=== PATIENT | male | born 1950 | race Hispanic/Latino ===

== ENCOUNTER 2017-03-08 06:18 | Day surgery (SDC) | payer MEDICARE ==
[2016-08-15 23:53] VITALS: BMI 41.9
[2017-03-08] MEDS ORDERED: Lidocaine 2% Inj (20ml) ONE ×2 (06:55→07:54)
[2017-03-08] MEDS ORDERED: Iohexol 350 MG/100 ML VIAL ONE (06:56)
[2017-03-08] MEDS ORDERED: Iohexol 350mgl/ml 50 ML ONE (06:56)
[2017-03-08] MEDS ORDERED: Phenylephrine 10 mg/ml Inj ONE (06:56)
[2017-03-08 07:17] VITALS: TEMP 98.3
[2017-03-08] MEDS ORDERED: Midazolam 2 MG/2 ML VIAL ONE (07:34)
[2017-03-08] MEDS ORDERED: Sodium Chloride 0.45% 1,000 ML IV SCH (08:30)
--- NOTE | 2017-03-08 08:37 | CARD ---
APPROVED REPORT HISTORY 71%. (EF Method: RADIONUCLIDE), peripheral vascular disease, chronic lung disease, hypertension , dyslipidemia . INDICATION The indication(s) include : dyspnea, valvular heart disease. CASE TECHNIQUE The patient was brought electively to the Cardiac Catheterization Laboratory in a fasting state and was prepped and draped in a sterile manner. The right femoral groin was infiltrated with 2% Lidocaine subcutaneous anesthesia. A 6F sheath was inserted into the right femoral artery without difficulty. Coronary angiography was performed using coronary diagnostic catheters. The left coronary system was accessed and visualized with a JL 4.5 catheter. The right coronary system was accessed and visualized with a JR 4 catheter. The left ventricle was accessed and visualized with a JR 4 catheter. Left ventriculogram was performed in DUNCAN projection. A Right Heart Catheterization was performed with a 7 Fr. [place]-Emy catheter and pressure were recorded. Cardiac outputs were obtained by the Thermodilution method. Pre-demployment femoral angiogram was performed revealing no evidence of significant disease and the access site appears to be in the profunda branch. Closure device was deployed with a Fr Mynx without any complications. Hemostasis was obtained with manual pressure following sheath removal without any complications. The patient tolerated the procedure well and there were no complications associated with the procedure. Vessel Analysis The patient's coronary anatomy is right dominant. The left main coronary artery is a large size vessel free of disease. The left main bifurcates to the left anterior descending and circumflex. The left anterior descending artery is a medium size vessel with midl irregularities. There is a 30% stenosis in the proximal segment. The first diagonal branch is a medium size vessel with intimal irregularities. The second diagonal branch is a medium size vessel with intimal irregularities. The circumflex artery is a large size vessel . There is a 30% stenosis in the mid segment. The right coronary artery is a medium size vessel . There is a 40% stenosis in the mid segment. The right posterior descending artery is a medium size vessel free of disease. The right posterolateral branch is a medium size vessel free of disease. Left Ventricle The left ventricle is normal in size with normal contractility. The left ventricular ejection fraction is estimated to be 75%. The left ventricular end diastolic pressure is 14 mmHg. Right Heart Cath Findings The Right Atrial Pressure is 2 mmHg. The Right Ventricular Pressure is 37/1 mmHg. The Pulmonary Artery Pressure is 38/14 mmHg. The Pulmonary Catheter Wedge Pressure is 16 mmHg. PVR Wood units. The cardiac output and index were assessed using thermodilution. The Cardiac Output is 9.10 L/min. The Cardiac index is 4.10 L/min/m2. Valves The peak gradient across the aortic valve is 10 mmHg. Conclusion Mild CAD. Mild . Normal right heart pressures. Normal LV systolic function. Recommendations Weight Loss Reduction ProgramMedical Therapy CC: Thor Rojas MD
[2017-03-08 10:15] VITALS: RESP 16
[2017-03-08 10:18] VITALS: BP 114/70; PULSE 71; O2SAT 94
== END 2017-03-08 12:00 | disposition home or self-care (01) ==
LOC: CATH 06:18
PROVIDERS: ATTEND Internal Medicine Cardiovascular Disease
DX: I25.10 Atherosclerotic heart disease of native coronary artery without angina pectoris (principal); I35.0 Nonrheumatic aortic (valve) stenosis; I10 Essential (primary) hypertension; I73.9 Peripheral vascular disease, unspecified; E78.5 Hyperlipidemia, unspecified
CPT/HCPCS: 36415; 86850; 86900; 93460; 99152; C1760; C1769; C1894; C2629; J1644; J2250; J3010; J7030; J7040; Q9967

== ENCOUNTER 2018-05-13 15:01 | Emergency (ER) | payer MEDICARE ==
[2018-05-13 15:02] VITALS: BMI 41.9
[2018-05-13 15:25] VITALS: PULSE 86; RESP 19
--- NOTE | 2018-05-13 15:51 | ED PDOC ---
Arrival/HPI - General Chief Complaint: Lower Extremity Problem/Injury Time Seen by Provider: 05/13/18 15:37 Historian: Patient - History of Present Illness Narrative History of Present Illness (Text): 05/13/18 15:48 67-year-old male presents today with a 2+ week history of left knee pain that has been gradually worsening. Patient states the pain today became severe. Patient states he walked about 100 feet and suddenly got a sharp stabbing pain within the medial aspect of the left knee. Patient states he took Tylenol for pain without improvement. Patient states he has an appointment tomorrow with the orthopedist. But states the pain is severe today. Patient also complaining of some pain within the left calf. He denies numbness weakness or tingling in the extremities. Denies any acute trauma or injury. Patient states he thought the pain was initially just arthritis until the pain became unbearable today. Past Medical History - Provider Review Nursing Documentation Reviewed: Yes - Travel History Have you recently traveled outside [place] w/in the past 3 mons?: No - Infectious Disease Hx of Infectious Diseases: None - Tetanus Immunization Tetanus Immunization: Unknown - Cardiac Hx Pacemaker: No - Pulmonary Hx Chronic Obstructive Pulmonary Disease (COPD): Yes - Neurological Hx Paralysis: No - HEENT Hx Cataracts: Yes (SX removed) - Hematological/Oncological Hx Blood Transfusions: No Hx Blood Transfusion Reaction: No - Musculoskeletal/Rheumatological Hx Musculoskeletal Disorders: No - Gastrointestinal Hx Gastroesophageal Reflux: Yes - Genitourinary/Gynecological Hx Genitourinary Disorders: Yes Other/Comment: Hydronephrosis with stent placement and removal - Psychiatric Hx Emotional Abuse: No Hx Physical Abuse: No Hx Substance Use: No - Surgical History Hx Inguinal Hernia Repair: Yes Other/Comment: Cysto - Anesthesia Hx Anesthesia: Yes Hx Anesthesia Reactions: Yes (DURING PROCEDURE) Hx Malignant Hyperthermia: No - Suicidal Assessment Feels Threatened In Home Enviroment: No Family/Social History - Physician Review Nursing Documentation Reviewed: Yes Family/Social History: Unknown Family HX Smoking Status: Never Smoked Hx Alcohol Use: Yes (Occsionally NOW;WAS MORE) Frequency of alcohol use: Socially Hx Substance Use: No Hx Substance Use Treatment: No Allergies/Home Meds Allergies/Adverse Reactions: Allergies No Known Allergies Allergy (Verified 05/13/18 15:25) Home Medications: Home Meds Medication Instructions Recorded Confirmed Escitalopram [Lexapro] 10 mg PO DAILY 02/04/14 05/13/18 Fluticasone/Salmeterol 250/50 1 inh INH DAILY 07/19/16 05/13/18 [Advair Diskus 250/50] Losartan [Cozaar] 50 mg PO DAILY 07/19/16 05/13/18 Simvastatin [Zocor] 20 mg PO HS 07/19/16 05/13/18 Triamterene/Hydrochlorothiazid 0.5 tab PO DAILY 03/03/17 05/13/18 [Triamterene-Hydrochlorothiazide 25 mg-37.5 mg] diltiaZEM CD [Cardizem CD] 240 mg PO DAILY 03/03/17 05/13/18 Aspirin [Lo-Dose Aspirin EC] 81 mg PO DAILY 04/11/18 05/13/18 Sage-3 Fatty Acids/Fish Oil [Fish 1 tab PO DAILY 04/11/18 05/13/18 Oil 1,000 mg Softgel] Pantoprazole Sodium [Protonix] 40 mg PO DAILY 04/11/18 05/13/18 Albuterol Sulfate [Proventil Hfa] 1 puff INH Q4H PRN 04/27/18 05/13/18 Review of Systems - Review of Systems Constitutional: absent: Fatigue, Fevers Respiratory: absent: SOB, Cough Cardiovascular: absent: Chest Pain, Palpitations Gastrointestinal: absent: Abdominal Pain, Nausea, Vomiting Musculoskeletal: Arthralgias. absent: Back Pain Skin: absent: Rash, Pruritis Neurological: absent: Headache, Dizziness Physical Exam Vital Signs Reviewed: Yes Vital Signs Temp Pulse Resp BP Pulse Ox 05/13/18 15:19 98.3 F 86 19 128/76 97 Temperature: Afebrile Blood Pressure: Normal Pulse: Regular Respiratory Rate: Normal Appearance: Positive for: Well-Appearing, Non-Toxic, Comfortable Pain Distress: None Mental Status: Positive for: Alert and Oriented X 3 - Systems Exam Head: Present: Atraumatic Neck: Present: Normal Range of Motion Respiratory/Chest: Present: Clear to Auscultation Cardiovascular: Present: Regular Rate and Rhythm Lower Extremity: Present: CALF TENDERNESS, NORMAL PULSES, Tenderness (left leg; + ttp over anterior medial aspect of knee; no edema, no erythema; no ecchymosis ; full rom of knee with pain on full flexion. + calf tenderness. sensation and distal pulses intact cap refill <2. ), Neurovascularly Intact, Capillary Refill < 2 s. No: Swelling, Erythema Neurological: Present: GCS=15, Speech Normal Skin: Present: Warm, Dry, Normal Color. No: Rashes Psychiatric: Present: Alert, Oriented x 3 Medical Decision Making ED Course and Treatment: 05/13/18 15:51 Patient nontoxic well-appearing in no distress with stable vital signs X-rays of the left knee: No fracture Venous duplex of the left lower leg: No DVT verbal report from remediation technician Toradol given for pain Patient placed in knee immobilizer. Crutches given for ambulation I discussed all results with patient advised to followup with the orthopedist for the next 2 days. Return if symptoms worsen persist or new symptoms develop i advised the patient that although the xrays show no fracture; there is still a possibility for ligamentous or tendon injury the patient must see the orthopedist for further evaluation. Patient states he has appointment with the orthopedist Dr. Jacobo tomorrow Copies of x-rays given to patient. Patient verbalizes understanding of discharge instructions and need for immediate followup. all aspects of this case were discussed the attending of record. Impression: knee pain Motrin every 6 hours as needed for pain tramadol; 1 tablet every 8 hours as needed for moderate to severe pain; may cause drowsiness. Rest, ice, compression, elevation Use crutches for ambulation Followup with the orthopedist within the next 2 days Followup with primary care physician within the next 2 days Return if symptoms worsen persist or if new symptoms develop - RAD Interpretation Radiology Orders: 05/13/18 15:37 KNEE WITH PATELLA LEFT 3 VIEW [RAD] Stat DUPLEX LOWER EXTRM VEIN LEFT [US] Stat - Medication Orders Current Medication Orders: Discontinued Medications Ketorolac Tromethamine (Toradol) 60 mg IM STAT STA Stop: 05/13/18 15:38 Disposition/Present on Arrival - Present on Arrival Any Indicators Present on Arrival: No History of DVT/PE: No History of Uncontrolled Diabetes: No Urinary Catheter: No History of Decub. Ulcer: No History Surgical Site Infection Following: None - Disposition Have Diagnosis and Disposition been Completed?: Yes Diagnosis: Knee pain Disposition: HOME/ ROUTINE Disposition Time: 15:52 Patient Plan: Discharge Patient Problems: Current Active Problems Problem Status Onset Knee pain Acute Condition: GOOD Discharge Instructions (ExitCare): Knee Pain (DC) Additional Instructions: Motrin every 6 hours as needed for pain tramadol; 1 tablet every 8 hours as needed for moderate to severe pain; may cause drowsiness. Rest, ice, compression, elevation Use crutches for ambulation Followup with the orthopedist within the next 2 days Followup with primary care physician within the next 2 days Return if symptoms worsen persist or if new symptoms develop Prescriptions: Ibuprofen [Motrin] 600 mg PO Q6H PRN #20 tab PRN Reason: pain/fever reduction traMADol [Ultram] 50 mg PO Q6H PRN #6 tab PRN Reason: moderate to severe pain Referrals: Miles Jacobo MD [Staff Provider] - Follow up with primary Hilaria Myers MD [Medical Doctor] - Follow up with primary [facility] [Outside] - Follow up with primary Forms: [employer] (Turkmen), WORK NOTE
--- NOTE | 2018-05-13 16:22 | RAD ---
Date of service: 05/13/2018 PROCEDURE: Left Knee Radiographs. HISTORY: Pain. COMPARISON: None. FINDINGS: BONES: Normal. No fracture. JOINTS: Normal. No osteoarthritis. JOINT EFFUSION: None. OTHER FINDINGS: None. IMPRESSION: Normal radiographs of the left knee.
[2018-05-13 17:14] VITALS: BP 121/54; TEMP 98; O2SAT 99
--- NOTE | 2018-05-14 12:09 | US ---
PROCEDURE: Left lower extremity venous US HISTORY: Leg pain and swelling. Evaluate for DVT. PHYSICIAN(S): Bob Campbell MD. TECHNIQUE: Duplex sonography and color-flow Doppler with graded compression were used to evaluate the deep venous system of the left lower extremity. FINDINGS: The visualized deep venous system of the left lower extremity is sonographically normal and compressible. Normal wave forms and augmentation are seen. There is no sonographic evidence for deep venous thrombosis in the visualized segments of the left lower extremity. IMPRESSION: 1. No sonographic evidence for deep venous thrombosis in the visualized segments of the left lower extremity.
== END 2018-05-13 17:16 | disposition home or self-care (01) ==
LOC: ED 15:01
DX: M25.562 Pain in left knee (principal)
CPT/HCPCS: 73562; 93971; 96372; 99285; J1885